=== PATIENT | female | born 1990 | race Caucasian/White ===

== ENCOUNTER 2016-10-29 21:26 | Emergency (ER) | payer MEDICAID ==
[~2016-10-29] VITALS: Ht 162.6 cm; Wt 100.2 kg
[~2016-10-29 21:26] MED LIST: ACET250T9 PO; METF500T4 PO
[2016-10-29 22:56] LABS: *URINE HCG, QUAL NEGATIVE (NEGATIVE)
--- NOTE | 2016-10-29 23:26 | NUR ---
Patient discharged to home in stable conditon. Written and verbal after care instructions given. Patient verbalizes understanding of instructions.
[2016-10-29 23:34] VITALS: BP 72/79
== END 2016-10-29 23:26 | disposition home or self-care (01) ==
LOC: ER 21:28
DX: J40 Bronchitis, not specified as acute or chronic (principal); M25.552 Pain in left hip; I10 Essential (primary) hypertension; E03.9 Hypothyroidism, unspecified; Z88.8 Allergy status to other drugs, medicaments and biological substances
CPT/HCPCS: 73502; 84703; 99284; A4663

== ENCOUNTER 2016-11-21 21:44 | Emergency (ER) | payer MEDICAID, OTHER ==
[~2016-11-21] VITALS: Ht 162.6 cm; Wt 100.2 kg
--- NOTE | 2016-11-21 22:31 | NUR ---
Patient discharged to home in stable conditon. Written and verbal after care instructions given. Patient verbalizes understanding of instructions.
== END 2016-11-21 22:32 | disposition home or self-care (01) ==
LOC: ER 21:48
DX: B34.9 Viral infection, unspecified (principal); M54.12 Radiculopathy, cervical region; I10 Essential (primary) hypertension; J45.909 Unspecified asthma, uncomplicated; E03.9 Hypothyroidism, unspecified; Z88.8 Allergy status to other drugs, medicaments and biological substances
CPT/HCPCS: A4663

== ENCOUNTER 2017-03-06 23:34 | Emergency (ER) | payer MEDICAID ==
[~2017-03-06] VITALS: Ht 162.6 cm; Wt 99.8 kg
[2017-03-07] MEDS ORDERED: NORETHINDRONE (00:14)
[2017-03-07] MEDS ORDERED: IMITREX (00:14)
[2017-03-07] MEDS ORDERED: NARATRIPTAN (00:14)
[2017-03-07 01:16] LABS: *BILIRUBIN,URIN NEGATIVE (NEGATIVE); *BLOOD, URINE NEGATIVE (NEGATIVE); *COLOR,URINE YELLOW (YELLOW); *KETONES,URINE NEGATIVE (NEGATIVE); *PROTEIN,URINE NEGATIVE (NEGATIVE); *UROBILINOGEN,URINE 0.2 E.U./dl (NORMAL); LEUKOCYTE ESTERASE ,URINE TRACE (NEGATIVE); NITRITE, URINE NEGATIVE (NEGATIVE); UGLUCOSE NEGATIVE (NEGATIVE)
[2017-03-07 01:22] LABS: *CLARITY,URINE HAZY (CLEAR); BASOPHILS # (AUTO) 0.1 K/uL (0.0-8.0); BASOPHILS % (AUTO) 0.7 % (0.0-2.0); EOSINOPHILS # (AUTO) 0.2 K/uL (0.0-0.7); EOSINOPHILS % (AUTO) 1.6 % (0.0-7.0); HEMATOCRIT 43.3 % (37-47); HEMOGLOBIN 14.6 G/DL (12.0-16.0); LYMPHOCYTES # (AUTO) 4.1 K/UL (0.8-4.8); LYMPHOCYTES % (AUTO) 42.2 % (20.5-51.5); MEAN CORPUSCULAR HEMOGLOBIN 26.5 UUG (27.0-31.0); MEAN CORPUSCULAR HGB CONC 34 g/dL (32.0-37.0); MEAN CORPUSCULAR VOLUME 78.5 FL (81.0-99.0); MONOCYTES # (AUTO) 0.8 K/UL (0.1-1.30); NEUTROPHILS # (AUTO) 4.6 K/UL (1.8-8.9); NEUTROPHILS % (AUTO) 47.5 % (38.5-71.5); PLATELET COUNT (AUTO) 366 K/UL (150-450); RED BLOOD CELL COUNT(AUTO) 5.52 MIL/UL (4.2-5.4); WHITE BLOOD COUNT (AUTO) 9.8 K/UL (4.0-11.2)
[2017-03-07 01:23] LABS: *URINE HCG, QUAL NEGATIVE (NEGATIVE)
[2017-03-07 01:31] LABS: BACTERIA,URINE FEW /HPF (NONE SEEN); RBC,URINE 0-3 /HPF (0-3); SQUAMOUS EPITHELIAL CELL,UR MODERATE /HPF (NONE SEEN)
[2017-03-07 01:33] LABS: ALANINE AMINOTRANSFERASE 21 U/L (14-59); ALKALINE PHOSPHATASE 99 U/L (50-136); ASPARTATE AMINOTRANSFERASE 15 U/L (15-37); BILIRUBIN,DIRECT < 0.1 mg/dL (0.0-0.2); BILIRUBIN,TOTAL 0.2 mg/dL (0.2-1.0); CARBON DIOXIDE 29 mmol/L (21-32); CHLORIDE 104 mmol/L (98-107); GLUCOSE 95 mg/dL (74-106); LIPASE 174 U/L (73-393); TOTAL PROTEIN, SERUM 7.8 g/dL (6.4-8.2); UREA NITROGEN, BLOOD 13 mg/dL (7-18)
[2017-03-07] MEDS ORDERED: IBUPROFEN 600 MG TABLET ONE (01:50)
[2017-03-07] MEDS ORDERED: IBUPROFEN 600 MG TABLET PO ONE (02:00)
--- NOTE | 2017-03-07 02:15 | NUR ---
Patient discharged to home in stable conditon. Written and verbal after care instructions given. Patient verbalizes understanding of instructions.
== END 2017-03-07 02:15 | disposition home or self-care (01) ==
LOC: ER 23:36
DX: M54.5 Low back pain (principal); E03.9 Hypothyroidism, unspecified; E28.2 Polycystic ovarian syndrome; G89.29 Other chronic pain; I10 Essential (primary) hypertension; J45.909 Unspecified asthma, uncomplicated; Z90.49 Acquired absence of other specified parts of digestive tract; Z90.89 Acquired absence of other organs; Z98.890 Other specified postprocedural states; Z88.8 Allergy status to other drugs, medicaments and biological substances
CPT/HCPCS: 36415; 80048; 80076; 81001; 83690; 84703; 85025; 99284; A4663

== ENCOUNTER 2017-06-13 15:25 | Emergency (ER) | payer MEDICAID, OTHER ==
[~2017-06-13] VITALS: Ht 162.6 cm; Wt 99.8 kg
[~2017-06-13 15:25] MED LIST changes: -ACET250T9 PO; +IMITREX; -METF500T4 PO; +NARATRIPTAN; +NORETHINDRONE
[2017-06-13] MEDS ORDERED: METFORMIN TAB 1000MG (15:43)
[2017-06-13] MEDS ORDERED: PROMETHAZINE HCL 25 MG/1 ML VIAL IM ONE (16:15)
[2017-06-13] MEDS ORDERED: HYDROMORPHONE 1 MG/1 ML DISP.SYRIN IM ONE (16:15)
[2017-06-13] MEDS ORDERED: HYDROMORPHONE 2 MG/1 ML DISP.SYRIN ONE (16:21)
[2017-06-13] MEDS ORDERED: PROMETHAZINE HCL 25 MG/1 ML VIAL ONE (16:21)
--- NOTE | 2017-06-13 16:40 | NUR ---
DR SHAH SPOKE WITH PATIENT MADE AWARE OF TEST RESULTS DANIEL BE DC HOME.
[2017-06-13 16:47] VITALS: BP 142/78
--- NOTE | 2017-06-13 16:48 | NUR ---
Patient discharged to home in stable conditon. Written and verbal after care instructions given. Patient verbalizes understanding of instructions.
== END 2017-06-13 16:51 | disposition home or self-care (01) ==
LOC: ER 15:26
DX: M54.12 Radiculopathy, cervical region (principal); Z79.84 Long term (current) use of oral hypoglycemic drugs; I10 Essential (primary) hypertension; J45.909 Unspecified asthma, uncomplicated; E03.9 Hypothyroidism, unspecified; Z88.8 Allergy status to other drugs, medicaments and biological substances; Z90.49 Acquired absence of other specified parts of digestive tract
CPT/HCPCS: 72040; 73030; 96372 ×2; 99284; A4663; J1170; J2550

== ENCOUNTER 2017-07-16 21:36 | Emergency (ER) | payer OTHER ==
[~2017-07-16] VITALS: Ht 162.6 cm; Wt 99.8 kg
[~2017-07-16 21:36] MED LIST changes: +METFORMIN TAB 1000MG
--- NOTE | 2017-07-17 01:25 | NUR ---
MSE COMPLETED, PT D/C'D HOME, ACI/RX GIVEN. PT AMBULATED W/O DIFF/TOOK ALL BELONGINGS, LEFT WITH RICHARD
[2017-07-17 01:26] VITALS: BP 148/82
== END 2017-07-17 01:28 | disposition home or self-care (01) ==
LOC: ER 21:37
DX: B34.9 Viral infection, unspecified (principal); G89.29 Other chronic pain; I10 Essential (primary) hypertension; J45.909 Unspecified asthma, uncomplicated; E28.2 Polycystic ovarian syndrome; Z79.84 Long term (current) use of oral hypoglycemic drugs; Z90.49 Acquired absence of other specified parts of digestive tract; E03.9 Hypothyroidism, unspecified; G43.909 Migraine, unspecified, not intractable, without status migrainosus

== ENCOUNTER 2017-11-09 21:06 | Emergency (ER) | payer OTHER ==
[~2017-11-09] VITALS: Ht 162.6 cm; Wt 99.8 kg
--- NOTE | 2017-11-09 21:25 | NUR ---
pt comes in to ED with c/o worsening flank pain. diagnosed with UTI 2 days ago, currently on abx. pt in no acute distress, able to speak in clear and complete sentences and make needs known. awaiting ER MD orders,.
[2017-11-09] MEDS ORDERED: METOCLOPRAMIDE HCL 10 MG/2 ML VIAL IM ONE (22:30)
[2017-11-09] MEDS ORDERED: METOCLOPRAMIDE HCL 10 MG/2 ML VIAL ONE (22:52)
[2017-11-09] MEDS ORDERED: CEPHALEXIN MONOHYDRATE 500 MG CAPSULE PO ONE (23:00)
[2017-11-09] MEDS ORDERED: HYDROCODONE/APAP 5-325MG TABLET PO ONE (23:00)
[2017-11-09] MEDS ORDERED: HYDROCODONE/APAP 5-325MG TABLET ONE (23:07)
[2017-11-09] MEDS ORDERED: CEPHALEXIN MONOHYDRATE 500 MG CAPSULE ONE (23:07)
[2017-11-10 00:24] LABS: *BILIRUBIN,URIN NEGATIVE (NEGATIVE); *BLOOD, URINE 1+ (NEGATIVE); *CLARITY,URINE CLEAR (CLEAR); *COLOR,URINE YELLOW (YELLOW); *KETONES,URINE NEGATIVE (NEGATIVE); *PROTEIN,URINE NEGATIVE (NEGATIVE); *UROBILINOGEN,URINE 0.2 E.U./dl (NORMAL); LEUKOCYTE ESTERASE ,URINE TRACE (NEGATIVE); NITRITE, URINE NEGATIVE (NEGATIVE); UGLUCOSE NEGATIVE (NEGATIVE)
[2017-11-10 00:36] LABS: *URINE HCG, QUAL NEGATIVE (NEGATIVE); BACTERIA,URINE FEW /HPF (NONE SEEN); SQUAMOUS EPITHELIAL CELL,UR MODERATE /HPF (NONE SEEN)
--- NOTE | 2017-11-10 00:46 | NUR ---
Patient discharged to home in stable conditon. Written and verbal after care instructions given with prescription. Patient verbalizes understanding of instructions. pt aware to not drive while taking pain medication.
== END 2017-11-10 00:51 | disposition home or self-care (01) ==
LOC: ER 21:06
DX: N12 Tubulo-interstitial nephritis, not specified as acute or chronic (principal); I10 Essential (primary) hypertension; J45.909 Unspecified asthma, uncomplicated; E03.9 Hypothyroidism, unspecified; Z88.8 Allergy status to other drugs, medicaments and biological substances; Z79.899 Other long term (current) drug therapy; Z79.84 Long term (current) use of oral hypoglycemic drugs
CPT/HCPCS: 81001; 84703; 87086; 99284; A4663; J2765

== ENCOUNTER 2017-11-30 17:27 | Emergency (ER) | payer OTHER ==
[~2017-11-30] VITALS: Ht 162.6 cm; Wt 99.8 kg
--- NOTE | 2017-11-30 19:10 | NUR ---
Dr. Tran at bedside for MSE.
[2017-11-30] MEDS ORDERED: TRAMADOL HCL 50 MG TABLET PO ONE (19:15)
[2017-11-30] MEDS ORDERED: TRAMADOL HCL 50 MG TABLET ONE (19:22)
--- NOTE | 2017-11-30 19:34 | NUR ---
Patient out of ER to CT.
--- NOTE | 2017-11-30 20:30 | NUR ---
Patient discharged to home in stable conditon. Written and verbal after care instructions given. Patient verbalizes understanding of instructions. Patient ambulated out of ER with steady gait, no acute signs of distress, VSS, all belongings taken.
[2017-11-30 20:32] VITALS: BP 154/88
== END 2017-11-30 20:30 | disposition home or self-care (01) ==
LOC: ER 17:31
DX: M47.22 Other spondylosis with radiculopathy, cervical region (principal); M54.12 Radiculopathy, cervical region; E03.9 Hypothyroidism, unspecified; E28.2 Polycystic ovarian syndrome; I10 Essential (primary) hypertension; J45.909 Unspecified asthma, uncomplicated; M48.02 Spinal stenosis, cervical region; Z79.84 Long term (current) use of oral hypoglycemic drugs; Z87.442 Personal history of urinary calculi
CPT/HCPCS: 72125; A4663

== ENCOUNTER 2018-01-02 20:41 | Emergency (ER) | payer OTHER ==
[~2018-01-02] VITALS: Ht 162.6 cm; Wt 99.8 kg
--- NOTE | 2018-01-02 20:58 | NUR ---
DR ZHOU SOUZA MD AT BEDSIDE FOR MSE.
--- NOTE | 2018-01-02 21:11 | NUR ---
PT RESTING COMFORTABLY IN BED. NO DISTRESS NOTED.
[2018-01-02] MEDS ORDERED: METOCLOPRAMIDE HCL 10 MG/2 ML VIAL IM ONE (21:15)
[2018-01-02] MEDS ORDERED: METOCLOPRAMIDE HCL 10 MG/2 ML VIAL ONE (21:15)
--- NOTE | 2018-01-02 22:27 | NUR ---
Patient discharged to home in stable conditon. Written and verbal after care instructions given. Patient verbalizes understanding of instructions. Pt ambulated from ER w/ steady gait. Denies pain, n/v, dizziness, or headache. VSS. No distress noted. Pt took all personal belongings
[2018-01-02 22:28] VITALS: BP 124/86
== END 2018-01-02 22:29 | disposition home or self-care (01) ==
LOC: ER 20:41
DX: G43.909 Migraine, unspecified, not intractable, without status migrainosus (principal); I10 Essential (primary) hypertension; J45.909 Unspecified asthma, uncomplicated; E03.9 Hypothyroidism, unspecified; Z88.8 Allergy status to other drugs, medicaments and biological substances; Z79.899 Other long term (current) drug therapy; Z79.84 Long term (current) use of oral hypoglycemic drugs
CPT/HCPCS: 96372; 99283; A4663; J2765

== ENCOUNTER 2018-03-22 00:15 | Emergency (ER) | payer OTHER ==
[~2018-03-22] VITALS: Ht 162.6 cm; Wt 102.1 kg
[~2018-03-22 00:15] MED LIST changes: -METFORMIN TAB 1000MG
[2018-03-22] MEDS ORDERED: ACET250T9 PO (00:44)
[2018-03-22] MEDS ORDERED: METF500T6 PO (00:44)
[2018-03-22 01:14] LABS: *BILIRUBIN,URIN NEGATIVE (NEGATIVE); *BLOOD, URINE NEGATIVE (NEGATIVE); *CLARITY,URINE CLEAR (CLEAR); *COLOR,URINE YELLOW (YELLOW); *KETONES,URINE NEGATIVE (NEGATIVE); *PROTEIN,URINE NEGATIVE (NEGATIVE); *UROBILINOGEN,URINE 0.2 E.U./dl (NORMAL); LEUKOCYTE ESTERASE ,URINE NEGATIVE (NEGATIVE); NITRITE, URINE NEGATIVE (NEGATIVE); UGLUCOSE NEGATIVE (NEGATIVE)
[2018-03-22 01:23] LABS: *URINE HCG, QUAL NEGATIVE (NEGATIVE); BACTERIA,URINE FEW /HPF (NONE SEEN); RBC,URINE 0-3 /HPF (0-3); SQUAMOUS EPITHELIAL CELL,UR MODERATE /HPF (NONE SEEN); WBC,URINE 0-3 /HPF (0-3)
--- NOTE | 2018-03-22 01:44 | NUR ---
Patient discharged to home in stable conditon. Written and verbal after care instructions given. Patient verbalizes understanding of instructions.
[2018-03-22 01:45] VITALS: BP 149/89
== END 2018-03-22 01:48 | disposition home or self-care (01) ==
LOC: ER 00:16
DX: R32 Unspecified urinary incontinence (principal); I10 Essential (primary) hypertension; J45.909 Unspecified asthma, uncomplicated; E03.9 Hypothyroidism, unspecified; Z88.8 Allergy status to other drugs, medicaments and biological substances; Z90.49 Acquired absence of other specified parts of digestive tract; Z90.89 Acquired absence of other organs; Z91.013 Allergy to seafood
CPT/HCPCS: 84703; A4663

== ENCOUNTER 2018-04-21 22:55 | Emergency (ER) | payer OTHER ==
[~2018-04-21] VITALS: Ht 162.6 cm; Wt 104.3 kg
[~2018-04-21 22:55] MED LIST changes: +ACET250T9 PO; -IMITREX; +METF-440 PO; -NARATRIPTAN; -NORETHINDRONE
--- NOTE | 2018-04-21 23:04 | NUR ---
MD YAO AT BEDSIDE FOR MSE
[2018-04-21 23:21] LABS: BASOPHILS # (AUTO) 0.1 K/uL (0.0-8.0); EOSINOPHILS # (AUTO) 0.2 K/uL (0.0-0.7); EOSINOPHILS % (AUTO) 1.4 % (0.0-7.0); HEMATOCRIT 42.1 % (31.2-41.9); HEMOGLOBIN 14.2 g/dL (10.9-14.3); LYMPHOCYTES # (AUTO) 3.4 K/uL (20.0-40.0); LYMPHOCYTES % (AUTO) 32.9 % (20.5-51.5); MEAN CORPUSCULAR HEMOGLOBIN 26.5 uug (24.7-32.8); MEAN CORPUSCULAR HGB CONC 34 g/dL (32.3-35.6); MEAN CORPUSCULAR VOLUME 78.9 fL (75.5-95.3); MONOCYTES # (AUTO) 0.9 K/uL (2.0-10.0); MONOCYTES % (AUTO) 8.9 % (0.0-11.0); NEUTROPHILS # (AUTO) 5.8 K/uL (1.8-8.9); NEUTROPHILS % (AUTO) 55.8 % (38.5-71.5); PLATELET COUNT (AUTO) 355 K/uL (179-408); RED BLOOD CELL COUNT(AUTO) 5.34 MIL/uL (3.63-4.92); WHITE BLOOD COUNT (AUTO) 10.4 K/uL (3.8-11.8)
[2018-04-21 23:50] LABS: CREATININE 0.9 mg/dL (0.6-1.3); POTASSIUM 3.8 mmol/L (3.5-5.1)
[2018-04-22] MEDS ORDERED: KETOROLAC TROMETHAMINE 30 MG INJ IM ONE
[2018-04-22] MEDS ORDERED: KETOROLAC TROMETHAMINE 30 MG INJ ONE (00:04)
--- NOTE | 2018-04-22 00:40 | NUR ---
Patient discharged to home in stable conditon. Written and verbal after care instructions given. Patient verbalizes understanding of instructions. Patient able to ambulate unassisted with a steady gait. Patient left with all personal belongings.
[2018-04-22 00:44] VITALS: BP 128/67
== END 2018-04-22 00:40 | disposition home or self-care (01) ==
LOC: ER 22:56
DX: R07.9 Chest pain, unspecified (principal); I10 Essential (primary) hypertension; J45.909 Unspecified asthma, uncomplicated; Z88.8 Allergy status to other drugs, medicaments and biological substances; Z91.013 Allergy to seafood; Z90.49 Acquired absence of other specified parts of digestive tract; Z90.89 Acquired absence of other organs
CPT/HCPCS: 36415; 71045; 80048; 84484; 84702; 85025; 85379; 93005; 96372; 99285; A4663; J1885; 70030-TC

== ENCOUNTER 2018-07-29 18:59 | Emergency (ER) | payer OTHER ==
[~2018-07-29] VITALS: Ht 162.6 cm; Wt 102.1 kg
--- NOTE | 2018-07-29 19:33 | NUR ---
Pt ambulates to ER with c/o headache, nausea, fever, & abdominal pain x 2 days. Pt states she took 325mg of Tylenol at around 1600 today. Pt denies chest pain/shortness of breath. Denies diarrhea/constipation/dysuria.
--- NOTE | 2018-07-29 20:01 | NUR ---
Patient discharged to home in stable conditon. Written and verbal after care instructions given. Patient verbalizes understanding of instructions.
[2018-07-29 20:02] VITALS: BP 147/82
== END 2018-07-29 20:03 | disposition home or self-care (01) ==
LOC: ER 19:01
DX: J40 Bronchitis, not specified as acute or chronic (principal); R51 Headache; J45.909 Unspecified asthma, uncomplicated; I10 Essential (primary) hypertension; E03.9 Hypothyroidism, unspecified; Z90.89 Acquired absence of other organs; Z90.49 Acquired absence of other specified parts of digestive tract; Z88.8 Allergy status to other drugs, medicaments and biological substances; Z91.013 Allergy to seafood; Z79.899 Other long term (current) drug therapy
CPT/HCPCS: 71045; A4663

== ENCOUNTER 2019-05-06 21:28 | Emergency (ER) | payer OTHER ==
[~2019-05-06] VITALS: Ht 162.6 cm; Wt 104.3 kg
[2019-05-06] MEDS ORDERED: METOCLOPRAMIDE HCL 10 MG/2 ML VIAL IV ONE (22:00)
[2019-05-06] MEDS ORDERED: KETOROLAC TROMETHAMINE 15 MG INJ IVP ONE (22:00)
[2019-05-06 22:03] LABS: BASOPHILS # (AUTO) 0.1 K/uL (0.0-8.0); BASOPHILS % (AUTO) 0.9 % (0.0-2.0); EOSINOPHILS # (AUTO) 0.2 K/uL (0.0-0.7); EOSINOPHILS % (AUTO) 2.1 % (0.0-7.0); HEMATOCRIT 40.3 % (31.2-41.9); HEMOGLOBIN 13.3 g/dL (10.9-14.3); LYMPHOCYTES # (AUTO) 2.4 K/uL (20.0-40.0); LYMPHOCYTES % (AUTO) 29.9 % (20.5-51.5); MEAN CORPUSCULAR HEMOGLOBIN 26.4 uug (24.7-32.8); MEAN CORPUSCULAR HGB CONC 33 g/dL (32.3-35.6); MEAN CORPUSCULAR VOLUME 79.8 fL (75.5-95.3); MONOCYTES # (AUTO) 0.8 K/uL (2.0-10.0); MONOCYTES % (AUTO) 10.1 % (0.0-11.0); NEUTROPHILS # (AUTO) 4.5 K/uL (1.8-8.9); PLATELET COUNT (AUTO) 316 K/uL (179-408); RED BLOOD CELL COUNT(AUTO) 5.05 MIL/uL (3.63-4.92); WHITE BLOOD COUNT (AUTO) 7.9 K/uL (3.8-11.8)
[2019-05-06] MEDS ORDERED: KETOROLAC TROMETHAMINE 15 MG INJ ONE (22:04)
[2019-05-06] MEDS ORDERED: METOCLOPRAMIDE HCL 10 MG/2 ML VIAL ONE (22:04)
[2019-05-06 22:10] LABS: POTASSIUM 3.8 mmol/L (3.5-5.1)
[2019-05-06 22:21] LABS: BILIRUBIN,DIRECT 0.1 mg/dL (0.0-0.2); BILIRUBIN,TOTAL 0.2 mg/dL (0.2-1.0); TOTAL PROTEIN, SERUM 6.8 g/dL (6.4-8.2)
--- NOTE | 2019-05-06 23:16 | NUR ---
Patient discharged to home in stable conditon. Written and verbal after care instructions given. Patient verbalizes understanding of instructions.copy of all the studies provided for pt to follow up.
[2019-05-06 23:46] VITALS: BP 130/89
== END 2019-05-06 23:47 | disposition home or self-care (01) ==
LOC: ER 21:30
DX: R10.9 Unspecified abdominal pain (principal); R11.0 Nausea; R19.7 Diarrhea, unspecified; J45.909 Unspecified asthma, uncomplicated; E11.9 Type 2 diabetes mellitus without complications; E03.9 Hypothyroidism, unspecified; Z90.49 Acquired absence of other specified parts of digestive tract; Z88.8 Allergy status to other drugs, medicaments and biological substances; Z91.013 Allergy to seafood; Z79.899 Other long term (current) drug therapy
CPT/HCPCS: 74176; 80048; 80076; 83690; 84484; 84702; 85025; 85730; 93005; 96374; 96375; 99284; J1885; J2765; 36415; 70030-TC; A4663; J7030

== ENCOUNTER 2020-09-21 19:44 | Emergency (ER) | payer MEDICAID, OTHER ==
[~2020-09-21] VITALS: Ht 162.6 cm; Wt 107.5 kg
--- NOTE | 2020-09-21 20:00 | NUR ---
Patient presents to ER due to Syncopal Fall. Patient states she did not hit her head and only reports some pain in her Abdomen. A&Ox4. Sinus Tachycardia on the monitor. No chest pain. No palpitations. Lung sounds clear [place] - no SOB - no dyspnea. GI/ function normal.
[2020-09-21] MEDS ORDERED: HYDROMORPHONE 1 MG/1 ML DISP.SYRIN IV ONE (20:15)
[2020-09-21] MEDS ORDERED: ONDANSETRON 4 MG/2 ML VIAL IV ONE (20:15)
[2020-09-21] MEDS ORDERED: IV NORMAL SALINE 1000 ML BAG IV ONE (20:15)
[2020-09-21 20:24] LABS: BASOPHILS % (AUTO) 0.5 % (0.0-2.0); EOSINOPHILS # (AUTO) 0.1 K/uL (0.0-0.7); EOSINOPHILS % (AUTO) 1.4 % (0.0-7.0); HEMATOCRIT 40.2 % (31.2-41.9); HEMOGLOBIN 13.4 g/dL (10.9-14.3); LYMPHOCYTES # (AUTO) 2.4 K/uL (20.0-40.0); LYMPHOCYTES % (AUTO) 27.9 % (20.5-51.5); MEAN CORPUSCULAR HEMOGLOBIN 25.9 uug (24.7-32.8); MEAN CORPUSCULAR HGB CONC 33 g/dL (32.3-35.6); MONOCYTES # (AUTO) 0.7 K/uL (2.0-10.0); MONOCYTES % (AUTO) 8.5 % (0.0-11.0); NEUTROPHILS # (AUTO) 5.3 K/uL (1.8-8.9); NEUTROPHILS % (AUTO) 61.7 % (38.5-71.5); PLATELET COUNT (AUTO) 343 K/uL (179-408); RED BLOOD CELL COUNT(AUTO) 5.15 MIL/uL (3.63-4.92); WHITE BLOOD COUNT (AUTO) 8.6 K/uL (3.8-11.8)
[2020-09-21 20:30] LABS: POTASSIUM 4.3 mmol/L (3.5-5.1)
[2020-09-21 20:41] LABS: BILIRUBIN,DIRECT 0.1 mg/dL (0.0-0.2); BILIRUBIN,TOTAL 0.1 mg/dL (0.2-1.0); TOTAL PROTEIN, SERUM 6.9 g/dL (6.4-8.2)
[2020-09-21] MEDS ORDERED: ONDANSETRON 4 MG/2 ML VIAL ONE (20:43)
[2020-09-21] MEDS ORDERED: HYDROMORPHONE 1 MG/1 ML DISP.SYRIN ONE (20:44)
--- NOTE | 2020-09-21 22:30 | NUR ---
Patient back from CT
[2020-09-21 22:53] VITALS: BP 132/88
== END 2020-09-21 23:09 | disposition home or self-care (01) ==
LOC: ER 19:54
DX: R55 Syncope and collapse (principal); R10.32 Left lower quadrant pain; G89.4 Chronic pain syndrome; N20.1 Calculus of ureter; Z90.49 Acquired absence of other specified parts of digestive tract; R03.0 Elevated blood-pressure reading, without diagnosis of hypertension; M32.9 Systemic lupus erythematosus, unspecified; Z88.1 Allergy status to other antibiotic agents; Z83.3 Family history of diabetes mellitus; Z82.49 Family history of ischemic heart disease and other diseases of the circulatory system; Z87.448 Personal history of other diseases of urinary system
CPT/HCPCS: 36415; 74176; 80048; 80076; 84484; 84702; 85025; 85730; 93005; 96361; 96374; 96375; 99285; J1170; J2405; 70030-TC; A4663; J7030

== ENCOUNTER 2021-09-15 20:09 | Emergency (ER) | payer MEDICAID ==
[~2021-09-15] VITALS: Ht 162.6 cm; Wt 106.6 kg
--- NOTE | 2021-09-15 20:25 | NUR ---
Dr. Prince at bedside for MSE.
[2021-09-15 20:48] LABS: HEMATOCRIT 40.1 % (31.2-41.9); MEAN CORPUSCULAR HEMOGLOBIN 24.9 uug (24.7-32.8); MEAN CORPUSCULAR VOLUME 75.2 fL (75.5-95.3); PLATELET COUNT (AUTO) 378 K/uL (179-408)
[2021-09-15 20:51] LABS: CARBON DIOXIDE 23 mmol/L (21-32); CHLORIDE 104 mmol/L (98-107); CREATININE 0.8 mg/dL (0.6-1.3); GLUCOSE 148 mg/dL (74-106); POTASSIUM 3.7 mmol/L (3.5-5.1); UREA NITROGEN, BLOOD 7 mg/dL (7-18)
[2021-09-15 20:56] LABS: ALANINE AMINOTRANSFERASE 28 U/L (14-59); ALKALINE PHOSPHATASE 134 U/L (50-136); ASPARTATE AMINOTRANSFERASE 11 U/L (15-37); BILIRUBIN,DIRECT 0.1 mg/dL (0.0-0.2); BILIRUBIN,TOTAL 0.2 mg/dL (0.2-1.0); LIPASE 124 U/L (73-393)
[2021-09-15] MEDS ORDERED: IV NS 1000 ML 1,000 ML IV ONE (21:15)
[2021-09-15] MEDS ORDERED: MORPHINE SULFATE 4 MG/1 ML DISP.SYRIN IV ONE ×2 (21:15→22:30)
[2021-09-15] MEDS ORDERED: ONDANSETRON 4 MG/2 ML VIAL IV ONE (21:15)
[2021-09-15] MEDS ORDERED: ACETAMINOPHEN ES 500 MG TABLET PO ONE (21:30)
[2021-09-15] MEDS ORDERED: ONDANSETRON 4 MG/2 ML VIAL ONE (21:39)
[2021-09-15] MEDS ORDERED: MORPHINE SULFATE 4 MG/1 ML DISP.SYRIN ONE ×2 (21:40→22:34)
[2021-09-15] MEDS ORDERED: ACETAMINOPHEN ES 500 MG TABLET ONE (21:40)
--- NOTE | 2021-09-15 21:43 | NUR ---
Pt out of ER for CT.
--- NOTE | 2021-09-15 22:03 | NUR ---
Pt back to ER from CT.
[2021-09-16] MEDS ORDERED: ONDANSETRON 4 MG/2 ML VIAL IV ONE
[2021-09-16 00:14] LABS: *BILIRUBIN,URIN NEGATIVE (NEGATIVE); *BLOOD, URINE NEGATIVE (NEGATIVE); *CLARITY,URINE CLEAR (CLEAR); *COLOR,URINE YELLOW (YELLOW); *KETONES,URINE NEGATIVE (NEGATIVE); *UROBILINOGEN,URINE 0.2 E.U./dl (NORMAL); LEUKOCYTE ESTERASE ,URINE TRACE (NEGATIVE); NITRITE, URINE NEGATIVE (NEGATIVE); UGLUCOSE NEGATIVE (NEGATIVE)
[2021-09-16 00:24] LABS: BACTERIA,URINE MODERATE /HPF (NONE SEEN); RBC,URINE 0-3 /HPF (0-3); SQUAMOUS EPITHELIAL CELL,UR MODERATE /HPF (NONE SEEN)
[2021-09-16 00:30] LABS: *AMPHETAMINE, URINE NEGATIVE (NEGATIVE); *CANNABINOID, URINE NEGATIVE (NEGATIVE); *COCCAINE, URINE NEGATIVE (NEGATIVE); *OPIATE, URINE NEGATIVE (NEGATIVE); *PHENCYCLIDINE SCREEN,URINE NEGATIVE (NEGATIVE)
[2021-09-16] MEDS ORDERED: ONDA4TAB11 PO (02:30)
[2021-09-16] MEDS ORDERED: HYDR-4209 PO (02:30)
[2021-09-16] MEDS ORDERED: METOCLOPRAMIDE HCL 10 MG/2 ML VIAL ONE (02:45)
[2021-09-16] MEDS ORDERED: CEphaleXIN 500 MG CAPSULE PO ONE (02:45)
[2021-09-16] MEDS ORDERED: diphenhydrAMINE 50 MG/1 ML VIAL IV ONE (02:45)
[2021-09-16] MEDS ORDERED: METOCLOPRAMIDE HCL 10 MG/2 ML VIAL IV ONE (02:45)
[2021-09-16] MEDS ORDERED: diphenhydrAMINE 50 MG/1 ML VIAL ONE (02:45)
[2021-09-16] MEDS ORDERED: CEPH500C2 PO (02:46)
--- NOTE | 2021-09-16 03:13 | NUR ---
Patient discharged to home in stable condition. Written and verbal after care instructions given. Patient verbalizes understanding of instructions. Stressed follow up or return to ER for worsening s/s. Patient out of ER with steady gait, no acute signs of distress, VSS, all belongings taken, IV site discontinued, provided with copies of labs and CT results, instructed not to drive, to be driven home by family.
--- NOTE | 2021-09-16 03:13 | NUR ---
PT passed PO challenge.
[2021-09-16 03:14] VITALS: BP 123/99
== END 2021-09-16 03:14 | disposition home or self-care (01) ==
LOC: ER 20:18
DX: R10.9 Unspecified abdominal pain (principal); N39.0 Urinary tract infection, site not specified; R19.7 Diarrhea, unspecified; R11.2 Nausea with vomiting, unspecified; N20.0 Calculus of kidney; Z90.49 Acquired absence of other specified parts of digestive tract; M32.9 Systemic lupus erythematosus, unspecified; Z88.6 Allergy status to analgesic agent; Z91.013 Allergy to seafood
CPT/HCPCS: 36415; 74176; 80048; 80076; 80307; 81001; 83605; 83690; 84702; 85025; 87040 ×2; 87086; 87400; 93005; 96361; 96374; 96375; 96376; 99284; J1200; J2270 ×2; J2405 ×2; J2765; A4663; A9150; J7030

== ENCOUNTER 2021-09-17 20:17 | Emergency (ER) | payer SELFPAY ==
[~2021-09-17] VITALS: Ht 162.6 cm; Wt 106.6 kg
[~2021-09-17 20:17] MED LIST changes: +CEPH500C2 PO; +HYDR-4209 PO; +ONDA4TAB11 PO
--- NOTE | 2021-09-17 22:15 | NUR ---
Dr. Prince At bedside for MSE.
[2021-09-17 22:47] LABS: HEMATOCRIT 37.2 % (31.2-41.9); MEAN CORPUSCULAR HEMOGLOBIN 25.1 uug (24.7-32.8); MEAN CORPUSCULAR VOLUME 74.3 fL (75.5-95.3); PLATELET COUNT (AUTO) 380 K/uL (179-408)
[2021-09-17 22:52] LABS: CREATININE 0.9 mg/dL (0.6-1.3); POTASSIUM 3.5 mmol/L (3.5-5.1)
[2021-09-17 22:53] LABS: *BILIRUBIN,URIN NEGATIVE (NEGATIVE); *BLOOD, URINE NEGATIVE (NEGATIVE); *CLARITY,URINE CLEAR (CLEAR); *COLOR,URINE YELLOW (YELLOW); *KETONES,URINE NEGATIVE (NEGATIVE); *UROBILINOGEN,URINE 0.2 E.U./dl (NORMAL); LEUKOCYTE ESTERASE ,URINE NEGATIVE (NEGATIVE); NITRITE, URINE NEGATIVE (NEGATIVE); UGLUCOSE NEGATIVE (NEGATIVE)
[2021-09-17 22:58] LABS: BILIRUBIN,DIRECT 0.1 mg/dL (0.0-0.2); BILIRUBIN,TOTAL 0.2 mg/dL (0.2-1.0); TOTAL PROTEIN, SERUM 7.4 g/dL (6.4-8.2)
[2021-09-17] MEDS ORDERED: ONDANSETRON 4 MG/2 ML VIAL IV ONE (23:00)
[2021-09-17] MEDS ORDERED: MORPHINE SULFATE 4 MG/1 ML DISP.SYRIN IV ONE (23:00)
[2021-09-17] MEDS ORDERED: MORPHINE SULFATE 4 MG/1 ML DISP.SYRIN ONE (23:06)
[2021-09-17] MEDS ORDERED: ONDANSETRON 4 MG/2 ML VIAL ONE (23:06)
--- NOTE | 2021-09-17 23:50 | NUR ---
pt taken to ct scan via marya.
[2021-09-17] MEDS ORDERED: SWABABLE VALVE TRANSFER SET EA MC ONE (23:57)
[2021-09-17] MEDS ORDERED: IOHEXOL 350 100 ML INFUS..BTL ONE (23:58)
[2021-09-17] MEDS ORDERED: IV NORMAL SALINE 250 ML IV ONE (23:58)
--- NOTE | 2021-09-18 00:10 | NUR ---
pt returned from ct scan.
[2021-09-18 01:24] LABS: LYMPHOCYTES % (MANUAL) 34 % (20-40); MONOCYTES % (MANUAL) 9 % (2-10); NEUTROPHILS % (MANUAL) 57 % (42-75)
[2021-09-18] MEDS ORDERED: MORPHINE SULFATE 4 MG/1 ML DISP.SYRIN IV ONE (02:00)
[2021-09-18] MEDS ORDERED: ONDANSETRON 4 MG/2 ML VIAL ONE (02:12)
[2021-09-18] MEDS ORDERED: MORPHINE SULFATE 4 MG/1 ML DISP.SYRIN ONE (02:12)
[2021-09-18] MEDS ORDERED: ONDANSETRON 4 MG/2 ML VIAL IV ONE (02:15)
--- NOTE | 2021-09-18 03:48 | NUR ---
Patient discharged to home in stable condition. Written and verbal after care instructions given. Patient verbalizes understanding of instructions. Stressed follow up or return to ER for worsening s/s. pt ambulated with steady gait. denies pain. no sob/chest pain.
[2021-09-18 03:49] VITALS: BP 123/30
== END 2021-09-18 03:51 | disposition home or self-care (01) ==
LOC: ER 20:19
DX: R07.9 Chest pain, unspecified (principal); R10.12 Left upper quadrant pain; Z86.16 Personal history of COVID-19; M32.9 Systemic lupus erythematosus, unspecified; Z88.6 Allergy status to analgesic agent; Z91.013 Allergy to seafood; Z83.3 Family history of diabetes mellitus; Z82.49 Family history of ischemic heart disease and other diseases of the circulatory system; R03.0 Elevated blood-pressure reading, without diagnosis of hypertension
CPT/HCPCS: 36415; 71045; 71275; 80048; 80076; 81003; 83605; 83690; 83880; 84484; 84702; 85007; 85025; 93005; 96374; 96375; 96376; 99285; J2270 ×2; J2405 ×2; Q9967; 70030-TC; J7050

== ENCOUNTER 2022-09-26 21:15 | Emergency (ER) | payer MEDICAID ==
[~2022-09-26] VITALS: Ht 162.6 cm; Wt 104.3 kg
--- NOTE | 2022-09-26 21:45 | NUR ---
Dr. Muñiz at bedside for MSE.
--- NOTE | 2022-09-26 21:50 | NUR ---
Pt provided urine sample, sent to lab.
[2022-09-26 22:04] LABS: *BILIRUBIN,URIN NEGATIVE (NEGATIVE); *BLOOD, URINE 3+ (NEGATIVE); *COLOR,URINE YELLOW (YELLOW); *KETONES,URINE NEGATIVE (NEGATIVE); *UROBILINOGEN,URINE 0.2 E.U./dl (NORMAL); LEUKOCYTE ESTERASE ,URINE 3+ (NEGATIVE); NITRITE, URINE NEGATIVE (NEGATIVE); PH,URINE 6.5 (5.0-8.0); UGLUCOSE NEGATIVE (NEGATIVE)
[2022-09-26 22:06] LABS: *CLARITY,URINE CLOUDY (CLEAR)
[2022-09-26 22:11] LABS: *URINE HCG, QUAL NEGATIVE (NEGATIVE)
[2022-09-26] MEDS ORDERED: ONDANSETRON ODT 4 MG TAB.RAPDIS ONE (22:21)
[2022-09-26] MEDS ORDERED: LIDOCAINE HCL 1% 20 ML VIAL ONE (22:21)
[2022-09-26] MEDS ORDERED: CEFTRIAXONE 1 G VIAL ONE (22:21)
[2022-09-26] MEDS ORDERED: HYDROMORPHONE 2 MG/1 ML DISP.SYRIN ONE (22:22)
[2022-09-26] MEDS ORDERED: HYDR-3980 PO (22:25)
[2022-09-26] MEDS ORDERED: ONDA4TAB5 PO (22:25)
[2022-09-26] MEDS ORDERED: CEPH500T PO (22:28)
[2022-09-26] MEDS ORDERED: HYDROMORPHONE 1 MG/1 ML DISP.SYRIN IM ONE (22:30)
[2022-09-26] MEDS ORDERED: CEFTRIAXONE 1 G VIAL IM ONE (22:30)
[2022-09-26] MEDS ORDERED: ONDANSETRON ODT 4 MG TAB.RAPDIS SL ONE (22:30)
[2022-09-26 22:52] VITALS: BP 152/102
--- NOTE | 2022-09-26 22:52 | NUR ---
Patient discharged to home in stable condition. Written and verbal after care instructions given. Patient verbalizes understanding of instructions. Stressed follow up or return to ER for worsening s/s. Patient out of ER with steady gait, no acute signs of distress, VSS, all belongings taken, provided with copies of lab results.
== END 2022-09-26 22:53 | disposition home or self-care (01) ==
LOC: ER 21:15
DX: R10.31 Right lower quadrant pain (principal); R30.0 Dysuria; M32.9 Systemic lupus erythematosus, unspecified; R31.29 Other microscopic hematuria; Z90.49 Acquired absence of other specified parts of digestive tract; Z90.710 Acquired absence of both cervix and uterus; Z88.6 Allergy status to analgesic agent; Z88.1 Allergy status to other antibiotic agents; Z91.013 Allergy to seafood
CPT/HCPCS: 99283; 81001; 84703; 96372; 87040; J0696; J3490; J1170; A4663; Q0162

== ENCOUNTER 2022-10-26 15:43 | Emergency (ER) | payer MEDICAID ==
[~2022-10-26] VITALS: Ht 162.6 cm; Wt 104.3 kg
[~2022-10-26 15:43] MED LIST changes: +CEPH500T PO; +HYDR-3980 PO; +ONDA4TAB5 PO
[2022-10-26] MEDS ORDERED: VITAMIN D3 (16:06)
[2022-10-26] MEDS ORDERED: GABA-532 PO (16:06)
[2022-10-26] MEDS ORDERED: ATOR20TA PO (16:06)
[2022-10-26] MEDS ORDERED: SUMA100T PO (16:06)
[2022-10-26] MEDS ORDERED: ONDANSETRON 4 MG/2 ML VIAL ONE (16:15)
[2022-10-26] MEDS ORDERED: MORPHINE SULFATE 2 MG/1 ML DISP.SYRIN IV ONE (16:15)
[2022-10-26] MEDS ORDERED: IV NORMAL SALINE 1000 ML BAG IV ONE (16:15)
[2022-10-26] MEDS ORDERED: ONDANSETRON 4 MG/2 ML VIAL IV ONE (16:15)
[2022-10-26] MEDS ORDERED: MORPHINE SULFATE 4 MG/1 ML DISP.SYRIN ONE ×2 (16:15→17:48)
[2022-10-26 16:39] LABS: HEMATOCRIT 38.1 % (31.2-41.9); MEAN CORPUSCULAR HEMOGLOBIN 24.8 uug (24.7-32.8); MEAN CORPUSCULAR VOLUME 77.3 fL (75.5-95.3); PLATELET COUNT (AUTO) 320 K/uL (179-408)
[2022-10-26 16:51] LABS: CREATININE 0.9 mg/dL (0.6-1.3); POTASSIUM 3.8 mmol/L (3.5-5.1)
[2022-10-26 16:56] LABS: BILIRUBIN,DIRECT 0.1 mg/dL (0.0-0.2); BILIRUBIN,TOTAL 0.2 mg/dL (0.2-1.0); TOTAL PROTEIN, SERUM 6.6 g/dL (6.4-8.2)
[2022-10-26 17:15] LABS: *BILIRUBIN,URIN NEGATIVE (NEGATIVE); *BLOOD, URINE 3+ (NEGATIVE); *COLOR,URINE YELLOW (YELLOW); *KETONES,URINE NEGATIVE (NEGATIVE); *UROBILINOGEN,URINE 0.2 E.U./dl (NORMAL); LEUKOCYTE ESTERASE ,URINE 1+ (NEGATIVE); NITRITE, URINE NEGATIVE (NEGATIVE); PH,URINE 5.5 (5.0-8.0); UGLUCOSE NEGATIVE (NEGATIVE)
[2022-10-26 17:16] LABS: *CLARITY,URINE SLIGHTLY CLOUDY (CLEAR)
[2022-10-26 17:17] LABS: BACTERIA,URINE MODERATE /HPF (NONE SEEN); RBC,URINE TNTC /HPF (0-3); SQUAMOUS EPITHELIAL CELL,UR FEW /HPF (NONE SEEN); WBC,URINE 20-50 /HPF (0-3)
[2022-10-26] MEDS ORDERED: MORPHINE SULFATE 4 MG/1 ML DISP.SYRIN IV ONE (17:45)
[2022-10-26] MEDS ORDERED: CEFTRIAXONE 1 G in IV DEXTROSE 5% 50 ML IV ONE (17:45)
[2022-10-26] MEDS ORDERED: CEFTRIAXONE /D5W 50ML IVPB **ER PYXIS IV ONE (17:48)
[2022-10-26] MEDS ORDERED: CEPH500T PO (18:08)
[2022-10-26] MEDS ORDERED: TRAM50TA2 PO (18:08)
[2022-10-26 18:23] VITALS: BP 129/78
== END 2022-10-26 18:23 | disposition home or self-care (01) ==
LOC: ER 16:16
DX: N12 Tubulo-interstitial nephritis, not specified as acute or chronic (principal); M32.9 Systemic lupus erythematosus, unspecified; J45.909 Unspecified asthma, uncomplicated; Z87.442 Personal history of urinary calculi; Z90.710 Acquired absence of both cervix and uterus; Z90.49 Acquired absence of other specified parts of digestive tract; Z90.89 Acquired absence of other organs; Z88.8 Allergy status to other drugs, medicaments and biological substances; Z91.013 Allergy to seafood; Z79.899 Other long term (current) drug therapy
CPT/HCPCS: 99285; 74176; 96365; 96375; 96361; 80076; 80048; 81001; 83690; 85025; 87040 ×2; 36415; 96376; 83605; J0696; J2405; J2270 ×2; J7040; A4663

== ENCOUNTER 2022-10-30 00:08 | Emergency (ER) | payer MEDICAID ==
[~2022-10-30] VITALS: Ht 162.6 cm; Wt 104.3 kg
[~2022-10-30 00:08] MED LIST changes: -ACET250T9 PO; +ATOR20TA PO; -CEPH500C2 PO; +GABA-532 PO; -HYDR-3980 PO; -HYDR-4209 PO; -METF-440 PO; -ONDA4TAB11 PO; +SUMA100T PO; +TRAM50TA2 PO; +VITAMIN D3
[2022-10-30] MEDS ORDERED: HYDROMORPHONE 1 MG/1 ML DISP.SYRIN IM ONE (02:45)
[2022-10-30] MEDS ORDERED: ONDANSETRON ODT 4 MG TAB.RAPDIS SL ONE (02:45)
[2022-10-30 02:59] LABS: HEMATOCRIT 37.5 % (31.2-41.9); MEAN CORPUSCULAR HEMOGLOBIN 25.5 uug (24.7-32.8); PLATELET COUNT (AUTO) 294 K/uL (179-408)
--- NOTE | 2022-10-30 03:05 | NUR ---
Patient ambulated to the bathroom indepedently. Activity tolerated well. Provided urine sample. Urine sample sent to lab.
[2022-10-30 03:08] LABS: CREATININE 0.8 mg/dL (0.6-1.3); MAGNESIUM 1.5 mg/dL (1.8-2.4); POTASSIUM 3.6 mmol/L (3.5-5.1)
[2022-10-30] MEDS ORDERED: ONDANSETRON ODT 4 MG TAB.RAPDIS ONE (03:09)
[2022-10-30] MEDS ORDERED: HYDROMORPHONE 1 MG/1 ML DISP.SYRIN ONE (03:10)
[2022-10-30] MEDS ORDERED: HYDROMORPHONE 2 MG/1 ML DISP.SYRIN ONE (03:10)
[2022-10-30 04:04] LABS: *BILIRUBIN,URIN NEGATIVE (NEGATIVE); *BLOOD, URINE NEGATIVE (NEGATIVE); *COLOR,URINE YELLOW (YELLOW); *KETONES,URINE NEGATIVE (NEGATIVE); *UROBILINOGEN,URINE 0.2 E.U./dl (NORMAL); LEUKOCYTE ESTERASE ,URINE TRACE (NEGATIVE); NITRITE, URINE NEGATIVE (NEGATIVE); UGLUCOSE NEGATIVE (NEGATIVE)
[2022-10-30 04:07] LABS: *CLARITY,URINE HAZY (CLEAR); BACTERIA,URINE FEW /HPF (NONE SEEN); SQUAMOUS EPITHELIAL CELL,UR FEW /HPF (NONE SEEN)
[2022-10-30] MEDS ORDERED: HYDR-3980 PO (05:02)
[2022-10-30] MEDS ORDERED: ONDA4TAB5 PO (05:02)
--- NOTE | 2022-10-30 05:12 | NUR ---
Patient discharged to home in stable condition. Written and verbal after care instructions given. Patient verbalizes understanding of instructions. Stressed follow up or return to ER for worsening s/s.
[2022-10-30 05:13] VITALS: BP 131/70
== END 2022-10-30 05:14 | disposition home or self-care (01) ==
LOC: ER 00:13
DX: M54.50 Low back pain, unspecified (principal); R11.2 Nausea with vomiting, unspecified; M32.9 Systemic lupus erythematosus, unspecified; E11.9 Type 2 diabetes mellitus without complications; J45.909 Unspecified asthma, uncomplicated; G43.909 Migraine, unspecified, not intractable, without status migrainosus; Z90.49 Acquired absence of other specified parts of digestive tract; Z90.89 Acquired absence of other organs; Z88.8 Allergy status to other drugs, medicaments and biological substances; Z91.013 Allergy to seafood; Z79.899 Other long term (current) drug therapy
CPT/HCPCS: 99283; 80048; 81001; 83735; 85025; 36415; 96372; 87040; J1170 ×2; A4663; Q0162

== ENCOUNTER 2022-12-11 17:43 | Emergency (ER) | payer MEDICAID ==
[~2022-12-11] VITALS: Ht 162.6 cm; Wt 104.3 kg
[~2022-12-11 17:43] MED LIST changes: +HYDR-3980 PO
[2022-12-11] MEDS ORDERED: IV NORMAL SALINE 1000 ML BAG IV ONE (18:00)
[2022-12-11] MEDS ORDERED: ACETAMINOPHEN ES 500 MG TABLET PO ONE (18:00)
[2022-12-11] MEDS ORDERED: ACETAMINOPHEN ES 500 MG TABLET ONE (18:26)
[2022-12-11 18:32] LABS: HEMATOCRIT 39.4 % (31.2-41.9); MEAN CORPUSCULAR HEMOGLOBIN 25.3 uug (24.7-32.8); MEAN CORPUSCULAR VOLUME 78.3 fL (75.5-95.3); PLATELET COUNT (AUTO) 327 K/uL (179-408)
[2022-12-11 18:39] LABS: CREATININE 0.9 mg/dL (0.6-1.3); POTASSIUM 3.9 mmol/L (3.5-5.1)
[2022-12-11 18:40] LABS: *BILIRUBIN,URIN NEGATIVE (NEGATIVE); *BLOOD, URINE NEGATIVE (NEGATIVE); *CLARITY,URINE CLEAR (CLEAR); *COLOR,URINE YELLOW (YELLOW); *KETONES,URINE NEGATIVE (NEGATIVE); *UROBILINOGEN,URINE 0.2 E.U./dl (NORMAL); LEUKOCYTE ESTERASE ,URINE NEGATIVE (NEGATIVE); NITRITE, URINE NEGATIVE (NEGATIVE); PH,URINE 5.5 (5.0-8.0); UGLUCOSE NEGATIVE (NEGATIVE)
[2022-12-11 18:44] LABS: BILIRUBIN,DIRECT 0.1 mg/dL (0.0-0.2); BILIRUBIN,TOTAL 0.1 mg/dL (0.2-1.0); TOTAL PROTEIN, SERUM 6.9 g/dL (6.4-8.2)
[2022-12-11] MEDS ORDERED: ONDANSETRON 4 MG/2 ML VIAL ONE (19:09)
[2022-12-11] MEDS ORDERED: MORPHINE SULFATE 4 MG/1 ML DISP.SYRIN ONE ×2 (19:10→19:57)
--- NOTE | 2022-12-11 19:10 | NUR ---
Assumed care of patient from day shift RN. Patient AAOx.4. Complaining of abdominal pain. Dr Pawan Jorgensen. awaiting for new order. IVF infusing at this time.
[2022-12-11] MEDS ORDERED: ONDANSETRON 4 MG/2 ML VIAL IV ONE (19:15)
[2022-12-11] MEDS ORDERED: MORPHINE SULFATE 4 MG/1 ML DISP.SYRIN IV ONE ×2 (19:15→20:00)
--- NOTE | 2022-12-11 19:42 | NUR ---
Back from CT.
--- NOTE | 2022-12-11 19:55 | NUR ---
Dr. Pawan Padilla at bedside.
[2022-12-11] MEDS ORDERED: CEPH500C2 PO (19:59)
[2022-12-11] MEDS ORDERED: ONDA4TAB11 PO (19:59)
--- NOTE | 2022-12-11 20:30 | NUR ---
Patient discharged to home in stable condition. Written and verbal after care instructions given. Patient verbalizes understanding of instructions. Stressed follow up or return to ER for worsening s/s. All belongings with patient.
[2022-12-11 20:38] VITALS: BP 140/90
== END 2022-12-11 20:30 | disposition home or self-care (01) ==
LOC: ER 18:21
DX: R10.30 Lower abdominal pain, unspecified (principal); R30.0 Dysuria; G43.909 Migraine, unspecified, not intractable, without status migrainosus; R10.2 Pelvic and perineal pain; Z90.89 Acquired absence of other organs; Z90.49 Acquired absence of other specified parts of digestive tract; Z90.710 Acquired absence of both cervix and uterus; Z88.8 Allergy status to other drugs, medicaments and biological substances; Z91.013 Allergy to seafood; Z79.899 Other long term (current) drug therapy
CPT/HCPCS: 99285; 74176; 96374; 76856; 96361; 96375; 80076; 80048; 81003; 83690; 85025; 84702; 36415; 96376; J2405; J2270 ×2; J7040; A4663; A9150

== ENCOUNTER 2022-12-26 18:38 | Emergency (ER) | payer MEDICAID ==
[~2022-12-26] VITALS: Ht 162.6 cm; Wt 104.3 kg
[~2022-12-26 18:38] MED LIST changes: +CEPH500C2 PO; -CEPH500T PO; +ONDA4TAB11 PO; -TRAM50TA2 PO
--- NOTE | 2022-12-26 19:01 | NUR ---
PT IS IN ROOM #2B. DR FORD EVALUATED THE PT.
[2022-12-26] MEDS ORDERED: MORPHINE SULFATE 2 MG/1 ML DISP.SYRIN IV ONE (19:15)
[2022-12-26] MEDS ORDERED: IV NORMAL SALINE 1000 ML BAG IV ONE (19:15)
[2022-12-26] MEDS ORDERED: ONDANSETRON 4 MG/2 ML VIAL IV ONE (19:15)
[2022-12-26] MEDS ORDERED: ONDANSETRON 4 MG/2 ML VIAL ONE (19:18)
[2022-12-26] MEDS ORDERED: MORPHINE SULFATE 4 MG/1 ML DISP.SYRIN ONE ×2 (19:19→20:28)
[2022-12-26 19:33] LABS: HEMATOCRIT 39.3 % (31.2-41.9); MEAN CORPUSCULAR HEMOGLOBIN 25.4 uug (24.7-32.8); MEAN CORPUSCULAR VOLUME 77.7 fL (75.5-95.3); PLATELET COUNT (AUTO) 350 K/uL (179-408)
[2022-12-26 19:43] LABS: CARBON DIOXIDE 27 mmol/L (21-32); CHLORIDE 104 mmol/L (98-107); CREATININE 0.9 mg/dL (0.6-1.3); GLUCOSE 128 mg/dL (74-106); POTASSIUM 3.6 mmol/L (3.5-5.1); UREA NITROGEN, BLOOD 13 mg/dL (7-18)
[2022-12-26 19:57] LABS: ALANINE AMINOTRANSFERASE 31 U/L (14-59); ALKALINE PHOSPHATASE 117 U/L (50-136); ASPARTATE AMINOTRANSFERASE 17 U/L (15-37); BILIRUBIN,DIRECT < 0.1 mg/dL (0.0-0.2); BILIRUBIN,TOTAL 0.3 mg/dL (0.2-1.0); LIPASE 156 U/L (73-393); TOTAL PROTEIN, SERUM 6.8 g/dL (6.4-8.2)
[2022-12-26] MEDS ORDERED: MORPHINE SULFATE 4 MG/1 ML DISP.SYRIN IV ONE (20:15)
[2022-12-26 20:37] LABS: *BILIRUBIN,URIN NEGATIVE (NEGATIVE); *BLOOD, URINE NEGATIVE (NEGATIVE); *CLARITY,URINE CLEAR (CLEAR); *COLOR,URINE YELLOW (YELLOW); *KETONES,URINE NEGATIVE (NEGATIVE); *UROBILINOGEN,URINE 0.2 E.U./dl (NORMAL); LEUKOCYTE ESTERASE ,URINE NEGATIVE (NEGATIVE); NITRITE, URINE NEGATIVE (NEGATIVE); UGLUCOSE NEGATIVE (NEGATIVE)
[2022-12-26 20:52] LABS: *URINE HCG, QUAL NEGATIVE (NEGATIVE)
[2022-12-26] MEDS ORDERED: PRED20TA PO (20:57)
[2022-12-26] MEDS ORDERED: methylPREDNISolone SOD SUCC 125 MG/2 ML VIAL IV ONE (21:00)
[2022-12-26] MEDS ORDERED: methylPREDNISolone SOD SUCC 125 MG/2 ML VIAL ONE (21:03)
--- NOTE | 2022-12-26 21:18 | NUR ---
Patient discharged to home in stable condition. Written and verbal after care instructions given. Patient verbalizes understanding of instructions. Stressed follow up or return to ER for worsening s/s. Patient walked out with steady gait.
[2022-12-26 21:22] VITALS: BP 135/95
== END 2022-12-26 21:20 | disposition home or self-care (01) ==
LOC: ER 18:38
DX: R10.9 Unspecified abdominal pain (principal); R30.0 Dysuria; M32.9 Systemic lupus erythematosus, unspecified; J45.909 Unspecified asthma, uncomplicated; Z90.49 Acquired absence of other specified parts of digestive tract; Z90.89 Acquired absence of other organs; Z90.710 Acquired absence of both cervix and uterus; Z88.8 Allergy status to other drugs, medicaments and biological substances; Z91.013 Allergy to seafood; Z79.899 Other long term (current) drug therapy
CPT/HCPCS: 99285; 74176; 96374; 96375; 96361; 80076; 80048; 81003; 84703; 83690; 85025; 87040 ×2; 36415; 96376; 83605; J2930; J2405; J2270 ×2; J7040; A4663

== ENCOUNTER 2023-01-31 15:33 | Emergency (ER) | payer MEDICAID ==
[~2023-01-31] VITALS: Ht 162.6 cm; Wt 105.2 kg
[~2023-01-31 15:33] MED LIST changes: +PRED20TA PO
--- NOTE | 2023-01-31 15:48 | NUR ---
seen and examined by
[2023-01-31 16:04] LABS: HEMATOCRIT 39.7 % (31.2-41.9); MEAN CORPUSCULAR HEMOGLOBIN 24.7 uug (24.7-32.8); MEAN CORPUSCULAR VOLUME 76.6 fL (75.5-95.3); PLATELET COUNT (AUTO) 392 K/uL (179-408)
[2023-01-31 16:09] LABS: *BILIRUBIN,URIN NEGATIVE (NEGATIVE); *BLOOD, URINE NEGATIVE (NEGATIVE); *CLARITY,URINE CLEAR (CLEAR); *COLOR,URINE YELLOW (YELLOW); *KETONES,URINE NEGATIVE (NEGATIVE); *UROBILINOGEN,URINE 0.2 E.U./dl (NORMAL); LEUKOCYTE ESTERASE ,URINE NEGATIVE (NEGATIVE); NITRITE, URINE NEGATIVE (NEGATIVE); PH,URINE 5.5 (5.0-8.0); UGLUCOSE NEGATIVE (NEGATIVE)
[2023-01-31 16:12] LABS: CARBON DIOXIDE 26 mmol/L (21-32); CHLORIDE 105 mmol/L (98-107); CREATININE 0.7 mg/dL (0.6-1.3); POTASSIUM 3.8 mmol/L (3.5-5.1); UREA NITROGEN, BLOOD 16 mg/dL (7-18)
[2023-01-31 16:17] LABS: ALANINE AMINOTRANSFERASE 27 U/L (14-59); ALKALINE PHOSPHATASE 110 U/L (50-136); ASPARTATE AMINOTRANSFERASE 12 U/L (15-37); BILIRUBIN,DIRECT < 0.1 mg/dL (0.0-0.2); BILIRUBIN,TOTAL 0.2 mg/dL (0.2-1.0); LIPASE 113 U/L (73-393); TOTAL PROTEIN, SERUM 6.9 g/dL (6.4-8.2)
[2023-01-31 17:18] VITALS: BP 112/74; TEMP 97; O2SAT 99
== END 2023-01-31 17:34 | disposition home or self-care (01) ==
LOC: ER 15:33
DX: R10.9 Unspecified abdominal pain (principal); N83.299 Other ovarian cyst, unspecified side; J45.909 Unspecified asthma, uncomplicated; G43.909 Migraine, unspecified, not intractable, without status migrainosus; Z90.49 Acquired absence of other specified parts of digestive tract; Z90.89 Acquired absence of other organs; Z90.710 Acquired absence of both cervix and uterus; Z88.8 Allergy status to other drugs, medicaments and biological substances; Z91.013 Allergy to seafood; Z79.899 Other long term (current) drug therapy
CPT/HCPCS: 36415; 76770; 83690; 85025; A4663

== ENCOUNTER → 2023-04-19 | Emergency (ER) | payer MEDICAID ==
[~2023-04-19] VITALS: Ht 162.6 cm; Wt 104.3 kg
[~2023-04-19] MED LIST changes: +IV NORMAL SALINE 1000 ML BAG IV ONE; +ONDANSETRON 4 MG/2 ML VIAL IV ONE; +ONDANSETRON 4 MG/2 ML VIAL ONE; +ONDANSETRON HCL 4 MG TABLET ONE; +ONDANSETRON ODT 4 MG TAB.RAPDIS SL ONE; +OXYCODONE/APAP 5-325 MG TABLET ONE; +OXYCODONE/APAP 5-325 MG TABLET PO ONE
[2023-04-19 00:50] VITALS: O2SAT 97
[2023-04-19 01:45] LABS: BASOPHILS % (AUTO) 0.5 % (0.0-2.0); DIFFERENTIAL COMMENT 0; EOSINOPHILS # (AUTO) 0.2 K/uL (0.0-0.7); EOSINOPHILS % (AUTO) 2.6 % (0.0-7.0); HEMATOCRIT 37.7 % (31.2-41.9); HEMOGLOBIN 12.7 g/dL (10.9-14.3); LYMPHOCYTES % (AUTO) 40.7 % (20.5-51.5); MEAN CORPUSCULAR HEMOGLOBIN 25.9 uug (24.7-32.8); MEAN CORPUSCULAR HGB CONC 34 g/dL (32.3-35.6); MEAN CORPUSCULAR VOLUME 76.7 fL (75.5-95.3); MONOCYTES # (AUTO) 0.6 K/uL (0.1-1.30); MONOCYTES % (AUTO) 8.1 % (0.0-11.0); NEUTROPHILS # (AUTO) 3.5 K/uL (1.8-8.9); NEUTROPHILS % (AUTO) 48.1 % (38.5-71.5); PLATELET COUNT (AUTO) 303 K/uL (179-408); RED BLOOD CELL COUNT(AUTO) 4.91 MIL/uL (3.63-4.92); RED CELL DISTRIBUTION WIDTH 16.1 % (12.3-17.7); WHITE BLOOD COUNT (AUTO) 7.3 K/uL (3.8-11.8)
[2023-04-19 01:49] LABS: CALCIUM 9.5 mg/dL (8.5-10.1); CARBON DIOXIDE 24 mmol/L (21-32); CHLORIDE 103 mmol/L (98-107); CREATININE 0.8 mg/dL (0.6-1.3); GLUCOSE 99 mg/dL (74-106); POTASSIUM 3.6 mmol/L (3.5-5.1); SODIUM SERUM 138 mmol/L (136-145); UREA NITROGEN, BLOOD 11 mg/dL (7-18)
[2023-04-19 01:54] LABS: ALANINE AMINOTRANSFERASE 18 U/L (14-59); ALBUMIN 3.3 g/dL (3.4-5.0); ALKALINE PHOSPHATASE 116 U/L (50-136); ASPARTATE AMINOTRANSFERASE 12 U/L (15-37); BILIRUBIN,DIRECT < 0.1 mg/dL (0.0-0.2); BILIRUBIN,TOTAL 0.3 mg/dL (0.2-1.0); LIPASE 115 U/L (73-393); TOTAL PROTEIN, SERUM 6.7 g/dL (6.4-8.2)
[2023-04-19 03:17] LABS: *BILIRUBIN,URIN NEGATIVE (NEGATIVE); *BLOOD, URINE NEGATIVE (NEGATIVE); *CLARITY,URINE CLEAR (CLEAR); *COLOR,URINE YELLOW (YELLOW); *KETONES,URINE NEGATIVE (NEGATIVE); *PROTEIN,URINE NEGATIVE (NEGATIVE); *UROBILINOGEN,URINE 0.2 E.U./dl (NORMAL); LEUKOCYTE ESTERASE ,URINE NEGATIVE (NEGATIVE); NITRITE, URINE NEGATIVE (NEGATIVE); PH,URINE 5.5 (5.0-8.0); UGLUCOSE NEGATIVE (NEGATIVE)
== END | disposition home or self-care (01) ==
LOC: ER 00:51
DX: R10.9 Unspecified abdominal pain (principal); R11.0 Nausea; G89.4 Chronic pain syndrome; M32.9 Systemic lupus erythematosus, unspecified; G43.909 Migraine, unspecified, not intractable, without status migrainosus; J45.909 Unspecified asthma, uncomplicated; Z87.442 Personal history of urinary calculi; Z90.49 Acquired absence of other specified parts of digestive tract; Z90.89 Acquired absence of other organs; Z88.8 Allergy status to other drugs, medicaments and biological substances; Z91.013 Allergy to seafood; Z79.899 Other long term (current) drug therapy
CPT/HCPCS: 99283; 96374; 96361; 80076; 80048; 81003; 83690; 85025; 36415; J2405; J7040; A4663; Q0162